=== PATIENT | female | born 1990 | race Caucasian/White ===

== ENCOUNTER → 2018-04-27 | Outpatient (CLI) | payer BC ==
--- NOTE | 2018-04-28 16:50 | Diagnostic Imaging Report ---
INDICATION: survey. TECHNIQUE: Multiple real-time grayscale images were obtained over the gravid uterus. COMPARISON: None. FINDINGS: There is a single live fetus in breech presentation. heart rate was not measured, however, technologist did report visualizing heart motion and movement. Placenta is posterior. Amniotic fluid volume appears unremarkable. survey demonstrates kidneys, bladder and stomach to be unremarkable. The brain is unremarkable. There is a four-chambered heart. There is a three-vessel cord with normal insertion. The visualized spine is unremarkable. Biometrical measurements are as follows: Biparietal 4.71 cm, age 20 weeks 2 days. Head circumference 17.49 cm, age 20 weeks 1 days. Abdominal circumference 14.71 cm, age 20 weeks 0 days. Femur length 3.36 cm, age 20 weeks 4 days. Sonographic estimate age: 20 weeks 2 days. Sonographic estimated date of delivery: 09/12/2018. Estimated Weight: 340 gm (+/- 50 gm). LMP percentile: 21%. heart rate: SEE WORKSHEET beats per minute. number: 1 of 1. IMPRESSION: Single live IUP approximately 20 weeks 2 days gestational age. The estimated date of confinement sonographically is 09/12/2018. Dictated by: Dictated on workstation # [id number]
== END ==
LOC: RAD 09:55
PROVIDERS: ATTEND Obstetrics & Gynecology
DX: Z36.89 Encounter for other specified antenatal screening (principal); Z3A.20 20 weeks gestation of pregnancy
CPT/HCPCS: 76805

== ENCOUNTER → 2018-07-24 | Outpatient (CLI) | payer BC | LOC: CARD 13:41 | PROVIDERS: ATTEND Internal Medicine Cardiovascular Disease | DX: R07.1 Chest pain on breathing (principal); I08.1 Rheumatic disorders of both mitral and tricuspid valves | CPT/HCPCS: 93306 ==

== ENCOUNTER 2018-08-31 09:28 | Outpatient (CLI) | payer BC ==
[~2018-08-31] VITALS: Ht 165.1 cm; Wt 88.0 kg
[2018-08-31] MEDS ORDERED: PREN1TAB79 PO (09:46)
[2018-08-31 09:49] VITALS: BP 126/85
== END 2018-08-31 11:01 | disposition home or self-care (01) ==
LOC: PREOP 09:28
PROVIDERS: ATTEND Obstetrics & Gynecology
DX: Z01.818 Encounter for other preprocedural examination (principal)
CPT/HCPCS: 87081

== ENCOUNTER 2018-09-03 05:57 | Inpatient (IN) | payer BC ==
[2018-09-03] VITALS (12 sets, daily range): BP systolic 100–137; BP diastolic 40–82
[~2018-09-03] VITALS: Ht 165.1 cm; Wt 88.0 kg
--- NOTE | 2018-09-03 05:45 | NUR ---
KEISHA BARRERA presented to unit via ambulation from home, accompanied by SO, with for REPEAT SECTION. KEISHA BARRERA weighed, gowned, voided, and to bed. EFHM and TOCO applied, VS taken. KEISHA BARRERA oriented to bed controls, call light, TV, heat, and A/C controls.
[~2018-09-03 05:57] MED LIST: CITRIC ACID/SOB CIT (BICITRA) 30 ML UDC ONE; CLINDAMYCIN 900 MG/50 ML IVPB 50 ML IV ONE; FAMOTIDINE 20MG/2ML IV (PEPCID) ONE; LACTATED RINGERS 1,000 ML IV ONE; METOCLOPRAMIDE INJ 10 MG/2 ML (REGLAN) ONE; PREN1TAB79 PO
[2018-09-03] MEDS ORDERED: LACTATED RINGERS 1,000 ML IV PRN (06:00)
[2018-09-03] MEDS ORDERED: CLINDAMYCIN 900 MG/50 ML IVPB 50 ML IV ONE ×2 (06:00→09:15)
[2018-09-03] MEDS ORDERED: CITRIC ACID/SOB CIT (BICITRA) 30 ML UDC PO ONE (06:00)
[2018-09-03] MEDS ORDERED: FAMOTIDINE 20MG/2ML IV (PEPCID) IV ONE (06:00)
[2018-09-03] MEDS ORDERED: METOCLOPRAMIDE INJ 10 MG/2 ML (REGLAN) IV ONE (06:00)
--- OUTSIDE RECORDS SUMMARY | 2018-09-03 06:01 | XMS REPORT | Continuity of Care Document ---
Author Organization Unknown Address Unknown Allergies Active Description Code Type Severity Reaction Onset Reported/Identified Relationship to Patient Clinical Status Yes amoxicillin [id number] Drug Allergy Mild HIVES 08/31/2018 Medications There is no data. Problems Date Dx Coded Attending Type Code Diagnosis Diagnosed By 04/28/2018 YNES RO DO Ot Z36.89 ENCOUNTER FOR OTHER SPECIFIED 04/28/2018 YNES RO DO Ot Z3A.20 20 WEEKS GESTATION OF 05/13/2018 YNES RO DO Ot Z36.89 ENCOUNTER FOR OTHER SPECIFIED 05/13/2018 YNES RO DO Ot Z3A.20 20 WEEKS GESTATION OF 07/28/2018 DANITZA SQUIRES MD Ot I08.1 RHEUMATIC DISORDERS OF BOTH MITRAL AND T 07/28/2018 DANITZA SQUIRES MD Ot R07.1 CHEST PAIN ON BREATHING 07/30/2018 DANITZA SQUIRES MD Ot I08.1 RHEUMATIC DISORDERS OF BOTH MITRAL AND T 07/30/2018 DANITZA SQUIRES MD Ot R07.1 CHEST PAIN ON BREATHING 07/30/2018 DANITZA SQUIRES MD Ot I08.1 RHEUMATIC DISORDERS OF BOTH MITRAL AND T 07/30/2018 DANITZA SQUIRES MD Ot R07.1 CHEST PAIN ON BREATHING 08/06/2018 DANITZA SQUIRES MD Ot I08.1 RHEUMATIC DISORDERS OF BOTH MITRAL AND T 08/06/2018 DANITZA SQUIRES MD Ot R07.1 CHEST PAIN ON BREATHING Procedures There is no data. Results Test Result Range Methicillin resistant Staphylococcus aureus (MRSA) screening culture - 08/31/18 10:50 Methicillin resistant Staphylococcus aureus (MRSA) screening culture NEG NRG Encounters ACCT No. Visit Date/Time Discharge Status Pt. Type Provider Facility Loc./Unit Complaint [id number] 08/31/2018 09:28:00 08/31/2018 11:01:00 DIS Outpatient YNES RO DO [facility] PREOP REPEAT SECTION [id number] 07/24/2018 13:41:00 07/24/2018 23:59:59 CLS Outpatient SHAW BARRAZA, DANITZA Naqvi [facility] CARD CHEST PAIN ON BREATHING [id number] 03/11/2018 12:37:00 03/11/2018 23:59:59 CLS Outpatient YNES RO DO [facility] RAD [id number] 09/03/2018 08:45:00 PEN Preadmit YNES RO DO PREVIOUS SECTION
[2018-09-03] MEDS: LACTATED RINGERS 1,000 ML IV PRN ×3 (06:10→08:16)
[2018-09-03 06:30] LABS: BASOPHILS % (AUTO) 0 % (0-10); EOSINOPHILS # (AUTO) 0.1 10^3/uL (0.0-0.3); EOSINOPHILS % (AUTO) 1 % (0-10); HEMATOCRIT 35 % (35-52); HEMOGLOBIN 11.8 G/DL (11.5-16.0); LYMPHOCYTES # (AUTO) 2.4 X 10^3 (1.0-4.0); LYMPHOCYTES % (AUTO) 26 % (12-44); MEAN CORPUSCULAR HEMOGLOBIN 30 PG (25-34); MEAN CORPUSCULAR HGB CONC 34 G/DL (32-36); MEAN CORPUSCULAR VOLUME 90 FL (80-99); MONOCYTES # (AUTO) 0.9 X 10^3 (0.0-1.0); MONOCYTES % (AUTO) 10 % (0-12); NEUTROPHILS # (AUTO) 5.9 X 10^3 (1.8-7.8); NEUTROPHILS % (AUTO) 64 % (42-75); PLATELET COUNT 243 10^3/uL (130-400); RED CELL DISTRIBUTION WIDTH 13.1 % (10.0-14.5); WHITE BLOOD COUNT 9.2 10^3/uL (4.3-11.0)
[2018-09-03] MEDS ORDERED: OXYTOCIN/NORMAL SALINE 500 ML IV ONE ×2 (06:54→06:55)
[2018-09-03] MEDS ORDERED: fentaNYL INJECTION 100 MCG/2 ML AMP ONE (07:00)
--- NOTE | 2018-09-03 07:16 | NUR ---
monitor off - ambulated to OR with assistance of surgery staff.
--- NOTE | 2018-09-03 07:17 | History & Physical-OB ---
OB - Chief Complaint & HPI Date/Time Date of Admission: Date of Admission: Sep 03, 2018 at 05:57 Date seen by a Provider: Sep 03, 2018 Time Seen by a Provider: 07:00 Chief Complaint/History OB-Reason for Admission/Chief: Section Hx : 4 Hx Para: 3 Expected Date of Delivery: Sep 09, 2018 Gestational Age in Weeks: 39 Gestational Age in Days: 1 Indication for : desires repeat Admission Nurse Assessment Rev: Yes History of Labs O neg Antibody neg RI RPR NR HBsAg NR HIV NR GC neg GBS neg Allergies and Home Medications Allergies Coded Allergies: amoxicillin (Verified Allergy, Mild, HIVES, 08/31/18) Home Medications Vit W-Ca,Fe,FA(<1 mg) 1 Each Tablet, 1 EACH PO DAILY, (Reported) Patient Home Medication List Home Medication List Reviewed: Yes OB - History Hx of Present Care: Yes Ultrasounds: Normal mid trimester US Obstetrical Complications: None, Gestational Hypertension Medical Complications: None Delivery History Adverse Rxn to Tranfusion: No (N/A) Patient Past Medical History n/a Social History/Family History HIV/AIDS: No Sexually Transmitted Disease: No Alcohol Use: Denies Use Recreational Drug Use: No Immunizations Date of Pneumonia Vaccine: May 01, 2018 OB - Admission Exam Physical Exam Vitals: Vital Signs 09/03/18 06:25 Temp 98.2 Pulse 86 Resp 18 B/P (MAP) 121/71 (88) Pulse Ox 97 O2 Delivery Room Air HEENT: NCAT Heart: Rhythm Normal Lungs: Clear Abdomen: Gravid Extremities: Normal Reflexes: Normal Heart Rate: 130's Accelerations: Accelerations Present Decelerations: No Decelerations Short Term Variability: Present [facility] Variability: Average (6-25) Contractions on Admission: >10 Minutes Apart Labs Laboratory Tests Test 09/03/18 06:10 Range/Units White Blood Count 9.2 4.3-11.0 10^3/uL Red Blood Count 3.90 L 4.35-5.85 10^6/uL Hemoglobin 11.8 11.5-16.0 G/DL Hematocrit 35 35-52 % Mean Corpuscular Volume 90 80-99 FL Mean Corpuscular Hemoglobin 30 25-34 PG Mean Corpuscular Hemoglobin Concent 34 32-36 G/DL Red Cell Distribution Width 13.1 10.0-14.5 % Platelet Count 243 130-400 10^3/uL Mean Platelet Volume 11.0 H 7.4-10.4 FL Neutrophils (%) (Auto) 64 42-75 % Lymphocytes (%) (Auto) 26 12-44 % Monocytes (%) (Auto) 10 0-12 % Eosinophils (%) (Auto) 1 0-10 % Basophils (%) (Auto) 0 0-10 % Neutrophils # (Auto) 5.9 1.8-7.8 X 10^3 Lymphocytes # (Auto) 2.4 1.0-4.0 X 10^3 Monocytes # (Auto) 0.9 0.0-1.0 X 10^3 Eosinophils # (Auto) 0.1 0.0-0.3 10^3/uL Basophils # (Auto) 0.0 0.0-0.1 10^3/uL OB - Assessment/Plan/Diagnosis Assessment Assessment: section Admission Dx 28 yo @ 38 weeks Previous GHTN Admission Status: Inpatient Order (span 2 midnights) Reason for Inpatient Admission: Repeat Plan Plan: Section YNES RO DO Sep 03, 2018 07:17
[2018-09-03] MEDS ORDERED: ONDANSETRON 4 MG/2 ML (SDV) Z0FRAN IVP PRN (07:30)
[2018-09-03] MEDS ORDERED: MEASLES,MUMPS,RUBELLA 1 EA INJ SC SCH (07:30)
[2018-09-03] MEDS ORDERED: TETANUS,DIPTH,PERTUSS P/F (BOOSTRIX) 0.5 ML VIAL IM SCH (07:30)
--- NOTE | 2018-09-03 07:32 | Discharge Inst-Women's Service ---
Discharge Inst-Women's Serv Depart Medication/Instructions New, Converted or Re-Newed RX: RX on Chart Final Diagnosis POD 2 RLTCS Consults/Follow Up Additional Follow Up: Yes Orders/Referrals Dr. Michaud in 7-10 days and in 6 weeks Activity Activity: Activity as Tolerated Driving Instructions: No Driving for 1 Week NO SMOKING: NO SMOKING Nothing Inside Vagina: No Douching, No [place], No Tampons Diet Discharge Diet: No Restrictions Symptoms to Report to : Bleeding Excessive, Pain Increased, Fever Over 101 Degrees F, Vaginal Bleeding Increase, Questions/Concerns For Any Problems or Questions: Contact Your Physician Skin/Wound Care Infection Signs and Symptoms: Increased Redness, Foul Odor of Wound, Increased Drainage, Skin Itchy or Has a Rash, Increased Swelling, Temperature Above 101 F Operative Area Clean and Dry: Keep Incision Clean/Dry Stitches/[place]/Dermabond: Dermabond, Care of Stitches Bathing Instructions: YNES Castro DO Sep 03, 2018 07:32
[2018-09-03] MEDS ORDERED: DOCU100C37 PO (07:33)
[2018-09-03] MEDS ORDERED: IBUP-844 PO (07:33)
[2018-09-03] MEDS ORDERED: ACHD5005 PO (07:33)
[2018-09-03] MEDS ORDERED: PHENYLEPHRINE 100 MCG/ML 10 ML (ANESTHESIA) SYR ONE (08:02)
[2018-09-03] MEDS ORDERED: ROPIVACAINE 5MG/ML 30ML VIAL ONE (08:02)
[2018-09-03] MEDS ORDERED: LIDOCAINE PF 2% 5 ML (XYLOCAINE) VIAL ONE (08:03)
[2018-09-03] MEDS ORDERED: BUPIVACAINE SPINAL 0.75% (SENSORCAINE) 2 ML AMP ONE (08:03)
[2018-09-03] MEDS: KETOROLAC 30 MG/ML VIAL IV SCH ×3 (10:59→23:03)
[2018-09-03] MEDS: DOCUSATE SODIUM 100 MG (COLACE) CAP PO SCH ×2 (10:59→23:03)
[2018-09-03] MEDS: HYDROcodone/APAP 5 MG/325 MG (LORTAB) TAB PO PRN (14:20)
--- NOTE | 2018-09-03 14:47 | OPERATIVE REPORT ---
DATE OF SERVICE: 09/03/2018 PREOPERATIVE DIAGNOSES: 1. A 28-year-old at 39 weeks' gestation. 2. Previous section x2. POSTOPERATIVE DIAGNOSES: 1. A 28-year-old at 39 weeks' gestation. 2. Previous section x2. PROCEDURE PERFORMED: Repeat low transverse section. SURGEON: Sergio Ro DO. ANESTHESIA: Spinal. ESTIMATED BLOOD LOSS: 500 mL. URINE OUTPUT: 80 mL, clear at the end of the procedure. FLUIDS: 1300 mL lactated Ringer's solution. FINDINGS: A live female weighing 7 pounds 2 ounces, Apgars of 7 and 9. Grossly normal appearing uterus, bilateral fallopian tubes and ovaries. INDICATIONS FOR PROCEDURE: This 28-year-old female patient who had sought care in my office and her care was complicated by gestational hypertension, which was monitored and then was found to be preeclampsia. Her blood pressures remained stable in the 130s to 140s over 80s throughout the last 2-3 weeks of her . Therefore, did not indicate delivery prior to this date. We discussed in her visits proceeding for repeat . Risks of this procedure were discussed with the patient in detail including recovery time frame and expectations as well as possibilities of complications. After everything was discussed with the patient again, it was reviewed in the preoperative area and consent was obtained and the patient was taken to the operating room. OPERATIVE REPORT IN DETAIL: Once in the operating room, spinal anesthesia was found to be adequate, she was placed in supine position with leftward tilt, prepped and draped in normal sterile fashion. Anesthesia was tested and timeout was performed. I then make a Pfannenstiel skin incision through the previously existing scar using a knife and carried down to the underlying fascia using Bovie cautery. Fascial incision was extended laterally using Bovie cautery. Superior aspect of the fascial incision was then grasped with Ajit clamps, tented upwards and dissected off the underlying rectus muscles. The inferior aspect of the fascial incision was then grasped with Ajit clamps, tented up and dissected off the underlying rectus muscles. The rectus muscle was then dissected down the midline using Davis scissors, which exposed the peritoneum, which was entered bluntly and extended using blunt traction. Arben ring retractor was placed in the peritoneal incision, which offered excellent lateral sidewall retraction. I identified the lower uterine segment, which was found to be thinned out. I made a low transverse incision to the vesicouterine peritoneum and bluntly dissected off the lower uterine segment, at which point I proceeded with myotomy until membranes were visualized, at which point I extended the uterine incision laterally and superiorly using bandage scissors. Amniotomy was performed using Allis clamp, clear fluid was noted. The was found in vertex presentation. With gentle fundal pressure, the infant's head was elevated out of the incision and was delivered through the incision. The nares and oropharynx were bulb suctioned and nuchal cord was reduced x1. Anterior and posterior shoulders were delivered. The was then brought to the operative field. The cord was doubly clamped and cut and infant was handed off to waiting nurses in attendance. Cord blood was collected, 3-vessel cord with intact placenta was delivered spontaneously thereafter. IV Pitocin was initiated to facilitate uterine contraction. Uterine fundus became firmer with bimanual massage. The uterus was exteriorized and cleared of all endometrial clots and debris. I then proceeded to close the uterine incision using #0 Vicryl suture in a running locked fashion. A second layer of imbricating #0 Monocryl was placed. Excellent hemostasis was noted after doing this. I then placed the uterus back in the pelvis and copiously irrigated the pelvis using normal saline. Once again, there was no active bleeding noted from any of my dissection planes. I placed Interceed antiadhesive over my low transverse incision and proceeded with closing the peritoneum. At that point after removing the Arben ring retractor, the peritoneum was reapproximated using #0 Vicryl suture in a running fashion. The rectus muscles were reapproximated using 3-0 Vicryl suture in interrupted fashion. The fascia was reapproximated using #0 Vicryl suture in a running fashion. Subcutaneous tissue was reapproximated using 3-0 plain in an interrupted subcutaneous stitch and the skin was reapproximated using 4-0 Monocryl in a running subcuticular. Dermabond was applied to the incision and sterile dressing with adhesive white tape. The patient tolerated the procedure well and was taken to recovery area in stable condition. Lap and sponge counts were correct at the end of the procedure. Instrument counts were correct as well. Two grams of Ancef were given preoperatively for infection prophylaxis. Job ID: [id number] DocumentID: [id number] Dictated Date: 09/03/2018 08:49:00 [employer] Date: 09/03/2018 14:47:17 Dictated By: SERGIO RO DO
[2018-09-04 05:09] VITALS: BP 120/73
[2018-09-04 05:50] LABS: BASOPHILS % (AUTO) 0 % (0-10); EOSINOPHILS # (AUTO) 0.1 10^3/uL (0.0-0.3); EOSINOPHILS % (AUTO) 1 % (0-10); HEMATOCRIT 33 % (35-52); LYMPHOCYTES # (AUTO) 2.1 X 10^3 (1.0-4.0); LYMPHOCYTES % (AUTO) 21 % (12-44); MEAN CORPUSCULAR HEMOGLOBIN 30 PG (25-34); MEAN CORPUSCULAR HGB CONC 33 G/DL (32-36); MEAN CORPUSCULAR VOLUME 91 FL (80-99); MEAN PLATELET VOLUME 11.2 FL (7.4-10.4); MONOCYTES % (AUTO) 10 % (0-12); NEUTROPHILS # (AUTO) 6.7 X 10^3 (1.8-7.8); NEUTROPHILS % (AUTO) 68 % (42-75); PLATELET COUNT 240 10^3/uL (130-400); RED CELL DISTRIBUTION WIDTH 13.7 % (10.0-14.5); WHITE BLOOD COUNT 9.9 10^3/uL (4.3-11.0)
--- NOTE | 2018-09-04 08:48 | NUR ---
PT SITTING UP IN THE CHAIR, INFANT. DENIES ANY NEEDS AT THIS TIME. WILL RETURN LATER FOR VS AND ASSESSMENT.
--- NOTE | 2018-09-04 09:46 | Postpartum Progress Note ---
Note Note Day # 1 Subjective: Patient is without complaints. Ambulating, voiding. Tolerating a regular diet without nausea or vomiting. Normal lochia. Pain is well controlled with oral pain medications. Objective: Physical Exam: General - Alert and oriented, no apparent distress Abdomen - Soft, appropriately tender to palpation, non-distended, fundus firm at umbilicus Extremities - no edema, negative Latricia's bilaterally Incision- c/d/i Assessment: POD 1 RLTCS Plan: Routine care. Encourage breast feeding. Encourage ambulation. Ferrous sulfate supplementation. Plan for discharge tomorrow Vitals - Labs Vital Signs - I&O Vital Signs Date Time Temp Pulse Resp B/P (MAP) Pulse Ox O2 Delivery O2 Flow Rate FiO2 09/04/18 05:09 97.9 79 18 120/73 (89) 98 Room Air 09/03/18 23:03 97.8 78 18 121/82 (95) 98 Room Air 09/03/18 19:54 98.7 77 18 117/74 (88) 97 Room Air 09/03/18 17:20 98.8 81 18 122/73 (89) 97 Room Air 09/03/18 15:23 96 Room Air 09/03/18 12:00 98.1 90 16 117/65 (82) 94 Room Air 09/03/18 10:45 99.9 93 16 121/68 (85) 99 Room Air 09/03/18 09:50 99.4 83 18 112/65 (81) 97 Room Air I & O 09/04/18 07:00 Intake Total 5150 ml Output Total 3730 ml Balance 1420 ml Labs Laboratory Tests 09/04/18 05:14: White Blood Count 9.9, Red Blood Count 3.68L, Hemoglobin 11.0L, Hematocrit 33L, Mean Corpuscular Volume 91, Mean Corpuscular Hemoglobin 30, Mean Corpuscular Hemoglobin Concent 33, Red Cell Distribution Width 13.7, Platelet Count 240, Mean Platelet Volume 11.2H, Neutrophils (%) (Auto) 68, Lymphocytes (%) (Auto) 21, Monocytes (%) (Auto) 10, Eosinophils (%) (Auto) 1, Basophils (%) (Auto) 0, Neutrophils # (Auto) 6.7, Lymphocytes # (Auto) 2.1, Monocytes # (Auto) 1.0, Eosinophils # (Auto) 0.1, Basophils # (Auto) 0.0 YNES RO DO Sep 04, 2018 09:45
--- NOTE | 2018-09-04 10:02 | NUR ---
DR. RO TO PT'S BEDSIDE.
[2018-09-04 10:19] VITALS: BP 127/74
--- NOTE | 2018-09-04 10:25 | NUR ---
PT IN BED. VS OBTAINED. INITIAL SHIFT ASSESSMENT COMPLETED; SEE INTERVENTION FOR FURTHER.
[2018-09-04 13:52] VITALS: BP 128/78
[2018-09-04] MEDS: IBUPROFEN 600 MG (MOTRIN) TAB PO SCH ×3 (13:52→22:22)
--- NOTE | 2018-09-04 13:52 | NUR ---
PT IN BED. VS OBTAINED. ROUTINE MOTRIN GIVEN PO; SEE EMAR FOR FURTHER. SHOWER SET UP PER REQUEST. S/O AT THE BEDSIDE.
--- NOTE | 2018-09-04 16:39 | NUR ---
PT SITTING UP ON THE SIDE OF THE BED, VISITOR AT THE BEDSIDE. NO NEEDS VOICED.
[2018-09-04] MEDS: HYDROcodone/APAP 5 MG/325 MG (LORTAB) TAB PO PRN (20:25)
[2018-09-04 21:46] VITALS: BP 124/73
[2018-09-04] MEDS: DOCUSATE SODIUM 100 MG (COLACE) CAP PO SCH ×2 (22:15→22:17)
[2018-09-04] MEDS: KETOROLAC 30 MG/ML VIAL IV SCH (22:23)
[2018-09-04] MEDS: CATHETER FLUSH 10 ML SYR IV SCH ×2 (22:23→22:24)
[2018-09-05 01:33] VITALS: BP 122/79
[2018-09-05] MEDS: IBUPROFEN 600 MG (MOTRIN) TAB PO SCH ×2 (01:35→09:29)
[2018-09-05] MEDS: CATHETER FLUSH 10 ML SYR IV SCH (06:16)
--- NOTE | 2018-09-05 07:00 | NUR ---
REPORT FROM SUKHWINDER DURAN.
--- NOTE | 2018-09-05 08:19 | Postpartum Progress Note ---
Note Note Day # 2 Subjective: Patient is without complaints. Ambulating, voiding. Tolerating a regular diet without nausea or vomiting. Normal lochia. Pain is well controlled with oral pain medications. Objective: Physical Exam: General - Alert and oriented, no apparent distress Abdomen - Soft, appropriately tender to palpation, non-distended, fundus firm at umbilicus Extremities - no edema, negative Latricia's bilaterally Incision:: c/d/i Assessment: POD 2 RLTCS Plan: Routine care. Encourage breast feeding. Encourage ambulation. Ferrous sulfate supplementation. Plan for discharge today Vitals - Labs Vital Signs - I&O Vital Signs Date Time Temp Pulse Resp B/P (MAP) Pulse Ox O2 Delivery O2 Flow Rate FiO2 09/05/18 01:33 98.2 78 18 122/79 (93) 99 Room Air 09/04/18 21:46 98.6 85 18 124/73 (90) 100 Room Air 09/04/18 13:52 99.0 79 18 128/78 (95) 97 Room Air 09/04/18 10:19 97.9 75 18 127/74 (91) 97 Room Air YNES RO DO Sep 05, 2018 08:19
[2018-09-05] MEDS: HYDROcodone/APAP 5 MG/325 MG (LORTAB) TAB PO PRN (09:29)
[2018-09-05 09:37] VITALS: BP 123/75
--- NOTE | 2018-09-05 09:42 | NUR ---
INITIAL ASSESSMENT COMPLETED, VSS, SEE INTERVENTIONS FOR DETAILED ASSESSMENTS, PLAN OF CARE EXPLAINED WITH PARENTS, NO QUESTIONS NOTED. SCHEDULED MEDS GIVEN ORDERED. PT UP AMBULATING IN ROOM WELL WITH INFANT IN OPEN CRIB AT BEDSIDE, S/O ALSO AT SIDE OF BED. NO DISTRESS NOTED, WILL MONITOR CLOSELY.
--- NOTE | 2018-09-05 10:30 | NUR ---
ASSUMED CARE OF PT FROM OMA DURAN.
[2018-09-05] MEDS: DOCUSATE SODIUM 100 MG (COLACE) CAP PO SCH (11:00)
--- NOTE | 2018-09-05 11:20 | NUR ---
REPORT RECEIVED FROM GENEVIEVE DURAN. Addendum: 09/05/18 at 1342 by OMA RIVERA RN WRONG TIME [id number]
[2018-09-05 11:47] VITALS: BP 133/73
--- NOTE | 2018-09-05 12:04 | NUR ---
RHOGAM GIVEN--SEE INTERVENTION FOR DETAILS.
--- NOTE | 2018-09-05 13:05 | NUR ---
PT DISCHARGED TO HOME, AMBULATED TO PRIVATE CAR WITH SECURED IN REAR FACING CAR SEAT, S/O AND DIRECTOR STRATEGIC PLANNING AT SIDE, NO DISTRESS NOTED, PT VERBALIZES UNDERSTANDING OF FOLLOW UP CARE AND INSTRUCTIONS.
== END 2018-09-05 13:05 | disposition home or self-care (01) | DRG 787 ==
LOC: LDRP 05:57
PROVIDERS: ADMIT Obstetrics & Gynecology; ATTEND Obstetrics & Gynecology
PROC: 10D00Z1 Extraction of Products of Conception, Low, Open Approach (ICD-10-PCS; principal; 2018-09-03 07:17)
DX: O34.211 Maternal care for low transverse scar from previous cesarean delivery (principal); O14.94 Unspecified pre-eclampsia, complicating childbirth; O99.43 Diseases of the circulatory system complicating the puerperium; I65.23 Occlusion and stenosis of bilateral carotid arteries; I34.0 Nonrheumatic mitral (valve) insufficiency; Z3A.38 38 weeks gestation of pregnancy; Z37.0 Single live birth; Z88.0 Allergy status to penicillin; Z87.891 Personal history of nicotine dependence
CPT/HCPCS: 36415; 83033; 85025; 86850; 86900; 86901; 88307; 94664

== ENCOUNTER 2022-06-05 16:57 | Emergency (ER) | payer OTHER ==
[~2022-06-05 16:57] MED LIST changes: +ACHD5005 PO; -CITRIC ACID/SOB CIT (BICITRA) 30 ML UDC ONE; -CLINDAMYCIN 900 MG/50 ML IVPB 50 ML IV ONE; +DOCU100C37 PO; -FAMOTIDINE 20MG/2ML IV (PEPCID) ONE; +IBUP-844 PO; -LACTATED RINGERS 1,000 ML IV ONE; -METOCLOPRAMIDE INJ 10 MG/2 ML (REGLAN) ONE
== END 2022-06-05 17:15 | disposition left against medical advice (07) ==
LOC: EDUNIT# 16:57 → ER 17:00
DX: Z53.21 Procedure and treatment not carried out due to patient leaving prior to being seen by health care provider (principal)